=== PATIENT | male | born 1970 | race African-American/Black ===

== ENCOUNTER 2017-03-04 11:18 | Emergency (ER) | payer OTHER ==
[~2017-03-04] VITALS: Ht 172.7 cm; Wt 79.7 kg
[~2017-03-04 11:18] MED LIST: ADVAIR 250/501 DISK IH; ALBUTEROL SULF8.5 GM IH; BACTRIM,SEPT1 TABLET PO; DOXYCYCLINE HY100 MG PO; DULERA 200 MCG/13 GM IH; DUONEB 2.5-0.5 M3 ML AEROSOL; DUONEB 2.5-0.5 M3 ML IH; FLONASE16 G1 BOTH NARES; HYCODAN SYRUP480 ML PO; LEVAQUIN750 MG PO; PERCOCET 5/31 TABLET PO; PREDNISONE10 MG PO; PREDNISONE20 MG PO; PREDNISONE50 MG PO; PROAIR HFA8.5 GM IH; PROVENTIL,2.5 MG/3 M IH; PROVENTIL2.5 MG/3 M IH; SINGULAIR10 MG PO; VENTOLIN HFA18 GM IH; ZITHROMAX Z-PA250 MG PO; ZOFRAN ODT4 MG PO
[2017-03-04] MEDS ORDERED: VENTOLIN HFA18 GM IH (13:01)
[2017-03-04] MEDS ORDERED: PROVENTIL,2.5 MG/3 M IH (13:01)
[2017-03-04] MEDS ORDERED: PREDNISONE20 MG PO (13:01)
[2017-03-04 13:34] VITALS: BP 159/98
== END 2017-03-04 13:35 | disposition home or self-care (01) ==
LOC: EME 11:18
DX: J45.901 Unspecified asthma with (acute) exacerbation (principal); Z87.11 Personal history of peptic ulcer disease; Z87.891 Personal history of nicotine dependence
CPT/HCPCS: 71020; 94640; 99281; 99284; J2930; J7030; J7512

== ENCOUNTER 2017-08-12 08:31 | Emergency (ER) | payer OTHER ==
[~2017-08-12] VITALS: Ht 172.7 cm; Wt 80.6 kg
[2017-08-12] MEDS ORDERED: NEOMYCIN-POLYMY10 ML BOTH EARS (11:17)
[2017-08-12] MEDS ORDERED: PERCOCET 5/31 TABLET PO (11:17)
[2017-08-12] MEDS ORDERED: BACTRIM,SEPT1 TABLET PO (11:17)
[2017-08-12 11:42] VITALS: BP 127/80
== END 2017-08-12 13:05 | disposition home or self-care (01) ==
LOC: EME 08:31
PROC: 0H98XZZ Drainage of Buttock Skin, External Approach (ICD-10-PCS; principal; 2017-08-12)
DX: H66.93 Otitis media, unspecified, bilateral (principal); L02.31 Cutaneous abscess of buttock; J45.909 Unspecified asthma, uncomplicated; Z88.0 Allergy status to penicillin; F17.200 Nicotine dependence, unspecified, uncomplicated
CPT/HCPCS: 99281; 99284

== ENCOUNTER 2018-01-05 15:22 | Emergency (ER) | payer OTHER ==
[~2018-01-05] VITALS: Ht 172.7 cm; Wt 74.4 kg
[~2018-01-05 15:22] MED LIST changes: +NEOMYCIN-POLYMY10 ML BOTH EARS
[2018-01-05 15:50] VITALS: BP 127/81
== END 2018-01-05 16:29 | disposition left against medical advice (07) ==
LOC: EME 15:22
DX: H57.8 Other specified disorders of eye and adnexa (principal); Z53.21 Procedure and treatment not carried out due to patient leaving prior to being seen by health care provider

== ENCOUNTER 2018-02-01 07:36 | Emergency (ER) | payer SELFPAY ==
[~2018-02-01] VITALS: Ht 172.7 cm; Wt 74.3 kg
[2018-02-01] MEDS ORDERED: PREDNISONE20 MG PO (08:57)
[2018-02-01] MEDS ORDERED: VENTOLIN HFA18 GM IH (08:57)
[2018-02-01 09:06] VITALS: BP 154/76
[2018-02-01] MEDS ORDERED: DEBROX15 ML RIGHT EAR (09:25)
== END 2018-02-01 09:08 | disposition home or self-care (01) ==
LOC: EME 07:36
PROC: 3E1B78Z Irrigation of Ear using Irrigating Substance, Via Natural or Artificial Opening (ICD-10-PCS; principal; 2018-02-01)
DX: J45.909 Unspecified asthma, uncomplicated (principal); H61.21 Impacted cerumen, right ear; R91.8 Other nonspecific abnormal finding of lung field; F17.200 Nicotine dependence, unspecified, uncomplicated; Z91.041 Radiographic dye allergy status; Z88.0 Allergy status to penicillin; Z91.013 Allergy to seafood; Z91.018 Allergy to other foods
CPT/HCPCS: 71046; 94640; 99281; 99283; J1100